=== PATIENT | female | born 1995 | race Caucasian/White ===

== ENCOUNTER 2020-11-06 23:29 | Inpatient (IN) | payer MEDICARE, MEDICAID ==
[2020-11-07] MEDS ORDERED: Bicitra 30 ML UDCUP PO PRN (00:34)
[2020-11-07] MEDS ORDERED: Famotidine/PF 20 mg/2ml Vial SLOW IVP PRN (00:34)
[2020-11-07 00:40] VITALS: BMI 39.6
[2020-11-07] MEDS ORDERED: hydrALAZINE 20 MG/ML VIAL SLOW IVP PRN ×2 (00:44→04:49)
[2020-11-07] MEDS ORDERED: Ondansetron PF 4 MG/2 ML Vial IVP PRN ×3 (00:44→04:49)
[2020-11-07] MEDS ORDERED: Promethazine HCl 25 MG/ML VIAL IM PRN ×3 (00:44→04:49)
[2020-11-07] MEDS ORDERED: Lactated Ringer's 1,000 ML IV SCH (00:45)
[2020-11-07] MEDS ORDERED: CEFAZOLIN 2 GM in Premix Bag 1 BAG IVPB SCH (00:45)
[2020-11-07] MEDS ORDERED: Azithromycin 500 MG in Sodium Chloride 0.9% 250 ML 250 ML IVPB SCH (00:45)
[2020-11-07] MEDS ORDERED: Methylergonovine 0.2 MG/ML VIAL IM PRN ×2 (00:46→04:49)
[2020-11-07] MEDS ORDERED: Misoprostol 200 MCG TAB PR PRN ×2 (00:46→04:49)
[2020-11-07] MEDS ORDERED: NS w/ Oxytocin 30 units 500 ML IV SCH ×2 (01:00→04:49)
[2020-11-07] MEDS ORDERED: Dexamethasone 4 mg/ml Vial ONE (01:04)
[2020-11-07] MEDS ORDERED: Morphine PF 10 MG/10 ML VIAL ONE (01:04)
[2020-11-07] MEDS ORDERED: Ondansetron PF 4 MG/2 ML Vial ONE (01:04)
[2020-11-07] MEDS ORDERED: PHENYLEPHRINE-NS 100 MCG/ML 10 ML SYRINGE ONE (01:04)
[2020-11-07] MEDS ORDERED: Oxytocin 10 UNITS/ML VIAL ONE (01:04)
[2020-11-07 01:06] LABS: Hemoglobin 9.2 g/dL (12.0-15.5); Mean Corpuscular HGB CONC 31.2 g/dL (32.0-36.0); Mean Corpuscular Hemoglobin 24.3 pg (27.0-33.0); Mean Corpuscular Volume 77.8 fl (81.6-98.3); Mean Platelet Volume 10.9 fl (7.4-10.4); Platelet Count 251 10x3/uL (150-450); Red Blood Cell (RBC) Count 3.79 10x6/uL (3.90-5.03)
[2020-11-07] MEDS ORDERED: Ketorolac Tromethamine 30 MG/ML VIAL IVP PRN (01:11)
[2020-11-07] MEDS ORDERED: Ondansetron HCl/PF 4 MG/2 ML Vial IVP PRN (01:11)
[2020-11-07] MEDS ORDERED: HYDROmorphone 2 MG/ML VIAL SLOW IVP PRN (01:11)
[2020-11-07] MEDS ORDERED: Hydrocerin (Eucerin) Cream 120 gm Jar TOP PRN (01:11)
[2020-11-07] MEDS ORDERED: diphenhydrAMINE 50 MG/ML VIAL IVP PRN (01:11)
[2020-11-07] MEDS ORDERED: Meperidine HCl/PF 25 MG/ML VIAL SLOW IVP PRN (01:11)
[2020-11-07] MEDS ORDERED: Promethazine HCl 25 MG SUPP PR PRN (01:11)
[2020-11-07] MEDS ORDERED: Naloxone HCl 0.4 mg/ml Vial IVP PRN ×2 (01:11)
[2020-11-07] MEDS ORDERED: Naloxone HCl 0.4 mg/ml Vial IV PRN (01:11)
[2020-11-07] MEDS ORDERED: L&D-Morphine 4 MG/ML VIAL SLOW IVP PRN (01:11)
[2020-11-07] MEDS ORDERED: Ketorolac Tromethamine 30 MG/ML VIAL IVP SCH (01:15)
[2020-11-07] MEDS ORDERED: Communication Order-Pharmacy FS SCH (01:15)
[2020-11-07 01:40] LABS: Hep B Surf Ag Non-Reactive S/CO (NonReactive)
[2020-11-07 01:41] LABS: Syphilis Antibody Nonreactive (Nonreactive); Syphilis Antibody Index 0.01 S/CO (<1.00 Non-Reactive)
[2020-11-07 03:14] LABS: HBSAg Index 0.18 S/CO (0-0.99)
[2020-11-07] MEDS ORDERED: Varicella virus, LIVE 0.5 ML VIAL SC ONE (04:49)
[2020-11-07] MEDS ORDERED: Acetaminophen 325 MG TAB PO PRN (04:49)
[2020-11-07] MEDS ORDERED: Simethicone Chewable 80 MG TAB PO PRN (04:49)
[2020-11-07] MEDS ORDERED: Bisacodyl 10 MG SUPP PR PRN (04:49)
[2020-11-07] MEDS ORDERED: Lanolin Ointment 7 GM TUBE TOP PRN (04:49)
[2020-11-07] MEDS ORDERED: diphenhydrAMINE 25 MG CAP PO PRN (04:49)
[2020-11-07] MEDS ORDERED: Measles/Mumps/Rubella 10 MCG/0.5 ML VIAL SC ONE (04:49)
[2020-11-07] MEDS ORDERED: Boostrix 0.5 ML (Tdap) VIAL IM ONE (04:49)
[2020-11-07] MEDS: Docusate Calcium (SURFAK) 240 MG CAP PO SCH ×2 (08:33→21:56)
[2020-11-07] MEDS: Prenatal Vitamin 1 TAB PO SCH (08:33)
[2020-11-07] MEDS: Ferrous Sulfate 325 MG TAB PO SCH ×2 (08:33→21:55)
[2020-11-07] MEDS: Enoxaparin Sodium 40 MG/0.4 ML SYRINGE SC SCH (08:34)
[2020-11-07] MEDS ORDERED: Zolpidem Tartrate 5 MG TAB PO PRN (13:15)
[2020-11-07] MEDS ORDERED: HYDROcodone/Acetaminophen 5/325 mg Tablet PO PRN (13:15)
[2020-11-07] MEDS: Ibuprofen 800 MG TAB PO SCH (21:55)
[2020-11-08] MEDS ORDERED: Ibuprofen 800 MG TAB PO SCH (06:00)
[2020-11-08] MEDS: Ibuprofen 800 MG TAB PO SCH ×3 (06:31→21:05)
[2020-11-08 07:34] LABS: Hemoglobin 8.5 g/dL (12.0-15.5); Mean Corpuscular HGB CONC 30.7 g/dL (32.0-36.0); Mean Corpuscular Hemoglobin 24.6 pg (27.0-33.0); Mean Corpuscular Volume 80.3 fl (81.6-98.3); Mean Platelet Volume 10.8 fl (7.4-10.4); Platelet Count 213 10x3/uL (150-450); RBC Distribution Width 16.4 % (11.5-14.5); Red Blood Cell (RBC) Count 3.45 10x6/uL (3.90-5.03); White Blood Cell (WBC) Count 7.5 10x3/uL (3.5-10.5)
[2020-11-08] MEDS: Docusate Calcium (SURFAK) 240 MG CAP PO SCH ×2 (09:22→19:36)
[2020-11-08] MEDS: Enoxaparin Sodium 40 MG/0.4 ML SYRINGE SC SCH (09:22)
[2020-11-08] MEDS: Ferrous Sulfate 325 MG TAB PO SCH ×2 (09:22→19:36)
[2020-11-08] MEDS: Prenatal Vitamin 1 TAB PO SCH (09:22)
[2020-11-08] MEDS: HYDROcodone/Acetaminophen 5/325 mg Tablet PO PRN (19:35)
[2020-11-09] MEDS: Ibuprofen 800 MG TAB PO SCH ×2 (06:43→14:42)
[2020-11-09] MEDS: HYDROcodone/Acetaminophen 5/325 mg Tablet PO PRN ×2 (07:22→14:41)
[2020-11-09 07:45] VITALS: BP 119/58; TEMP 98.1
[2020-11-09] MEDS: Enoxaparin Sodium 40 MG/0.4 ML SYRINGE SC SCH (08:27)
[2020-11-09] MEDS: Prenatal Vitamin 1 TAB PO SCH (08:28)
[2020-11-09] MEDS: Docusate Calcium (SURFAK) 240 MG CAP PO SCH (08:28)
[2020-11-09] MEDS: Ferrous Sulfate 325 MG TAB PO SCH (08:28)
== END 2020-11-09 19:15 | disposition home or self-care (01) | DRG 788 ==
LOC: CSHLD/OP 23:29 → CSHLD 11-07 00:35 → CSHPP 11-07 05:01
PROVIDERS: ADMIT Obstetrics & Gynecology; ATTEND Obstetrics & Gynecology
PROC: 10D00Z1 Extraction of Products of Conception, Low, Open Approach (ICD-10-PCS; principal; 2020-11-07)
PROC: 0UB90ZZ Excision of Uterus, Open Approach (ICD-10-PCS; 2020-11-07)
DX: O34.211 Maternal care for low transverse scar from previous cesarean delivery (principal); Z3A.39 39 weeks gestation of pregnancy; Z37.0 Single live birth; O34.13 Maternal care for benign tumor of corpus uteri, third trimester; D25.9 Leiomyoma of uterus, unspecified
CPT/HCPCS: 36415; 51702; 85027; 86780; 86850; 86900; 86901; 87340; 88305; 99285; J1100; J1650; J1885; J2274; J2405; J2590; U0003; U0005